=== PATIENT | male | born 1960 | race Caucasian/White ===

== ENCOUNTER 2024-05-31 08:00 | Day surgery (SDC) | payer BC ==
[2024-05-31] MEDS: IV FLUID CONTINUATION 1,000 ML IV ONE (08:11)
[2024-05-31 08:16] VITALS: RESP 16; TEMP 97.4
[2024-05-31] MEDS ORDERED: LACTATED RINGERS 1,000 ML IV SCH (08:21)
[2024-05-31] MEDS ORDERED: LIDOCAINE 1% (10MG/ML) FOR IV START INTRADERMA PRN (08:21)
[2024-05-31] MEDS ORDERED: PROPOFOL 10 MG/ML 20 ML VIAL IV ONE (08:49)
--- NOTE | 2024-05-31 08:52 | P.GSHP ---
History of Present Illness H&P Date: 05/31/24 Chief Complaint: Screening colonoscopy This a 63-year-old male presents today for screening colonoscopy. Patient denies any significant GI complaints. Past Medical History Past Medical History: Hypertension, Renal Disease Additional Past Medical History / Comment(s): stage 3a kidney disease, hx. colon polyp History of Any Multi-Drug Resistant Organisms: None Reported Past Surgical History: Cholecystectomy Additional Past Surgical History / Comment(s): colonoscopies, left cataract removed Past Anesthesia/Blood Transfusion Reactions: No Reported Reaction Smoking Status: Former smoker - Past Family History Father Family Medical History: Cancer Additional Family Medical History / Comment(s): hx colon cancer & also dad's brother Medications and Allergies Home Medications Medication Instructions Recorded Confirmed Type Amlodipine Besylate/Valsartan 1 each PO DAILY 05/29/24 05/31/24 History [Amlodipine Besylate/Valsartan 10-160 mg] Ergocalciferol [Vitamin D2 (1250 1,250 mcg PO WEEKLY 05/29/24 05/31/24 History Mcg = 53895 Iu)] Allergies Allergy/AdvReac Type Severity Reaction Status Date / Time No Known Allergies Allergy Verified 05/29/24 14:56 Surgical - Exam Vital Signs Temp Resp BP Pulse Ox 97.4 F L 16 137/82 98 05/31/24 08:14 05/31/24 08:14 05/31/24 08:14 05/31/24 08:14 - General well developed, well nourished, no distress - Eyes PERRL - ENT normal pinna - Neck no masses - Respiratory normal expansion - Cardiovascular Rhythm: regular - Abdomen Abdomen: soft, non tender Assessment and Plan Assessment: Will perform screening colonoscopy
--- NOTE | 2024-05-31 09:06 | P.OP ---
Date of Procedure: 05/31/24 Preoperative Diagnosis: Screening colonoscopy Postoperative Diagnosis: Diverticulosis Procedure(s) Performed: Colonoscopy Anesthesia: MAC Surgeon: Jorge Kennedy Pathology: none sent Condition: stable Disposition: PACU Description of Procedure: Patient is placed on the endoscopy table in the lateral position. He received IV sedation. Digital rectal exams performed. This revealed no abnormalities. Flexible colonoscope was then placed patient anus passed throughout the entire colon. The ileocecal valve was visualized. The cecum, ascending and transverse colon appeared normal. The descending sigmoid colon there is extensive diverticular changes. Scope back to the rectum this appeared normal. Scope withdrawn for the patient.
[2024-05-31 09:21] VITALS: BP 102/64; PULSE 71
== END 2024-05-31 09:41 | disposition home or self-care (01) ==
LOC: ORWHC2ENDO 08:00
PROVIDERS: ATTEND Surgery
DX: Z12.11 Encounter for screening for malignant neoplasm of colon (principal); K57.30 Diverticulosis of large intestine without perforation or abscess without bleeding; I12.9 Hypertensive chronic kidney disease with stage 1 through stage 4 chronic kidney disease, or unspecified chronic kidney disease; N18.30 Chronic kidney disease, stage 3 unspecified; Z86.0100 Personal history of colon polyps, unspecified; Z87.891 Personal history of nicotine dependence; Z90.49 Acquired absence of other specified parts of digestive tract; Z80.0 Family history of malignant neoplasm of digestive organs; Z79.899 Other long term (current) drug therapy
CPT/HCPCS: 45378; J2704